=== PATIENT | female | born 1940 | race Caucasian/White ===

== ENCOUNTER 2017-02-14 09:25 | Emergency (ER) | payer MEDICARE ==
[~2017-02-14] VITALS: Ht 162.6 cm; Wt 66.0 kg
[2017-02-14 09:29] VITALS: BP 194/96; PULSE 89; RESP 16; TEMP 98.3; O2SAT 98
[2017-02-14] MEDS ORDERED: OMEP20TA93 PO (09:36)
--- NOTE | 2017-02-14 09:46 | PD ---
HPI Chief Complaint: Injury Time Seen by Provider: 09:39 Travel History International Travel<30 days: No Contact w/Intl Traveler<30days: No Traveled to known affect area: No History of Present Illness HPI 76-year-old female presents to emergency department after a fall that occurred this morning. States she was going for her morning walk on the sidewalk tripped and fell landing on her left wrist and knees. States her left wrist is tender with decreased range of motion secondary to pain. Pain is moderate, decreases with rest. Right wrist mild pain to palpation to the ulnar head, but has full range of motion. States knees are 'ok' and denies pain. States that she did bump her head on her arm. Patient denies loss of consciousness, dizziness, headache, blurred vision, head pain, neck pain, back pain. Denies fever, chills, chest pain, short of breath. Patient is not on anticoagulants. Denies numbness, tingling of extremities. PFSH Past Medical History GERD: Yes Tetanus Vaccination: Unknown Influenza Vaccination: Yes Social History Alcohol Use: Yes (nightly 3 drinks) Tobacco Use: No Substance Use: No Allergies-Medications (Allergen,Severity, Reaction): Coded Allergies: No Known Allergies (Unverified , 02/14/17) Reported Meds & Prescriptions Reported Meds & Active Scripts Active Muldraugh (Hydrocodone-Acetaminophen) 5 Mg-325 Mg Tab 1 Tab PO Q6H PRN Reported Omeprazole 20 Mg Tab 20 Mg PO DAILY Review of Systems Except as stated in HPI: all other systems reviewed are Neg Physical Exam Narrative GENERAL: Well-developed well-nourished SKIN: Focused skin assessment warm/dry. HEAD: Atraumatic. Normocephalic. No obvious trauma, skin intact EYES: Pupils equal and round. No scleral icterus. No injection or drainage. EOMI ENT: No nasal bleeding or discharge. Mucous membranes pink and moist. NECK: Trachea midline. No JVD. No midline tenderness, no TTP. CARDIOVASCULAR: Regular rate and rhythm. No murmur appreciated. RESPIRATORY: No accessory muscle use. Clear to auscultation. Breath sounds equal bilaterally. GASTROINTESTINAL: Abdomen soft, non-tender, nondistended. Hepatic and splenic margins not palpable. MUSCULOSKELETAL: No obvious deformities. No clubbing. No cyanosis. No edema. Left wrist- distal radius with slight dorsal displacement. Neurovascularly intact. Decreased lateral rotation of forearm secondary to pain. Ecchymosis to wrist Right wrist- TTP to ulnar region, no ecchymosis, edema or deformities. Full range of motion of hand. Neurovascular intact No tenderness to palpation of the elbows, or deformities. Bilateral knees- superficial abrasions, full range of motion without deformities or ecchymosis NEUROLOGICAL: Awake and alert. No obvious cranial nerve deficits. Motor grossly within normal limits. Normal speech. PSYCHIATRIC: Appropriate mood and affect; insight and judgment normal. Data Data Last Documented VS Vital Signs Date Time Temp Pulse Resp B/P (MAP) Pulse Ox O2 Delivery O2 Flow Rate FiO2 02/14/17 14:11 67 18 130/68 (88) 94 Room Air 02/14/17 12:50 3.00 02/14/17 09:29 98.3 Orders Orders Wrist, Complete (Jun2cmv) (02/14/17 ) Wrist, Complete ([id number]) (02/14/17 ) Acetamin-Hydrocod 325-5 Mg (Muldraugh 5-325 (02/14/17 10:30) Propofol 200 Mg/20 Ml Inj (Diprivan 200 (02/14/17 12:15) Ecg Monitoring (02/14/17 12:25) Iv Access Insert/Monitor (02/14/17 12:25) Oximetry (02/14/17 12:25) Splinting (02/14/17 ) Fiberglass Sugartong Sp Ad Arm (02/14/17 ) Sling Cradle Arm (02/14/17 ) Wrist, Limited (Ap&Lat) (02/14/17 ) Splint Or Brace Apply/Monitor (02/14/17 14:32) Ed Discharge Order (02/14/17 14:35) Radiology Film Requests (02/14/17 ) MDM Medical Decision Making Medical Screen Exam Complete: Yes Emergency Medical Condition: Yes Differential Diagnosis Left wrist fracture versus sprain versus strain Right wrist fracture versus sprain versus strain Narrative Course 76-year-old female presents to emergency department after a fall that occurred this morning. States she was going for her morning walk on the sidewalk tripped and fell landing on her left wrist and knees. States her left wrist is tender with decreased range of motion secondary to pain. Pain is moderate, decreases with rest. Right wrist mild pain to palpation to the ulnar head, but has full range of motion. States knees are 'ok' and denies pain. States that she did bump her head on her arm. Patient denies loss of consciousness, dizziness, headache, blurred vision, head pain, neck pain, back pain. Denies fever, chills, chest pain, short of breath. Patient is not on anticoagulants. She ate grapes approximately and hour prior to arrival and coffee earlier this morning. Otherwise has been NPO. Vital signs stable Physical exam left wrist deformity, neurovascularly intact. Right wrist no obvious trauma but TTP to ulnar head, neurovascular intact Left Wrist: Comminuted angulated fracture of the distal left radius involving the radiocarpal joint, Avulsion fracture of the ulnar styloid. Right Wrist: No acute process. Last tetanus shot approximately 3 years ago with her right knee replacement. Pt refused knee xrays and imaging of the head and neck. I explained risks vs benefits. 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 Discussed case with Dr. Alvarado. Post reduction xray improved pain and deformity. Dr. Hutchins recommended follow-up in his clinic next week. Hydrocodone for pain control Explained care for her left wrist. Diagnosis Primary Impression: Knee abrasion Qualified Codes: S80.219A - Abrasion, unspecified knee, initial encounter Additional Impressions: Fracture, radius, distal Qualified Codes: S52.502A - Unspecified fracture of the lower end of left radius, initial encounter for closed fracture Wrist contusion Qualified Codes: S60.211A - Contusion of right wrist, initial encounter Referrals: Primary Care Physician Additional Instructions: Keep the splint clean and dry. Do not remove the splint. Take medications as prescribed If your symptoms persist or worsen return to the emergency department If you develop headache, worsening symptoms, return to the emergency department Return to your primary care physician within 2 days Scripts Hydrocodone-Acetaminophen (Muldraugh) 5 Mg-325 Mg Tab 1 TAB PO Q6H Y for PAIN, #10 TAB 0 Refills Prov: Magda Alvarado DO 02/14/17 Disposition: 01 DISCHARGE HOME Condition: Stable Pari Jones Feb 14, 2017 09:46
--- NOTE | 2017-02-14 10:27 | RADRPT ---
EXAM DATE/TIME: 02/14/2017 10:06 [facility] COMPARISON: No previous studies available for comparison. INDICATIONS : Fell pain with deformity left wrist. MEDICAL HISTORY : None. SURGICAL HISTORY : None. ENCOUNTER: Initial ACUITY: 1 day PAIN SCORE: 10/10 LOCATION: Left wrist. FINDINGS: Three view examination of the left wrist demonstrates a contracted fracture of the distal left radius extending into the radiocarpal joint. There is slight angulation of the fracture with the apex point ed dorsally. No significant distraction is noted. Small avulsion fracture the ulnar styloid is noted. Significant soft tissue swelling is apparent. CONCLUSION: 1. Comminuted angulated fracture of the distal left radius involving the radiocarpal joint. 2. Avulsion fracture of the ulnar styloid. Maikol Barton MD on February 14, 2017 at 10:24 Board Certified Radiologist. This report was verified electronically.
--- NOTE | 2017-02-14 10:29 | RADRPT ---
EXAM DATE/TIME: 02/14/2017 10:06 [facility] COMPARISON: No previous studies available for comparison. INDICATIONS : Fell pain medial right wrist. MEDICAL HISTORY : None. SURGICAL HISTORY : None. ENCOUNTER: Initial ACUITY: 1 day PAIN SCORE: 5/10 LOCATION: Right wrist. FINDINGS: Three view examination of the right wrist demonstrates no soft tissue swelling, dislocation, or fract ure. The carpal bones are in normal alignment. Mild degenerative arthropathy is seen of the radiocar pal joint. Sclerosis and irregularity seen along the inferior articulating surface of the lunate. Bon y mineralization is normal. CONCLUSION: 1. Mild right wrist arthropathy. 2. No evidence of acute fracture or dislocation. Maikol Barton MD on February 14, 2017 at 10:26 Board Certified Radiologist. This report was verified electronically.
[2017-02-14] MEDS ORDERED: ACETAMINOPHEN/HYDROcodone 325 MG/5 MG TAB PO ONE (10:30)
[2017-02-14] MEDS ORDERED: PROPOFOL 200 MG/20 ML AMP IV ONE (12:15)
--- NOTE | 2017-02-14 12:25 | PD ---
Physical Exam Date Seen by Provider: Feb 14, 2017 Data Data Last Documented VS Vital Signs Date Time Temp Pulse Resp B/P (MAP) Pulse Ox O2 Delivery O2 Flow Rate FiO2 02/14/17 14:11 67 18 130/68 (88) 94 Room Air 02/14/17 12:50 3.00 02/14/17 09:29 98.3 Orders Orders Wrist, Complete (Ppt0kal) (02/14/17 ) Wrist, Complete ([id number]) (02/14/17 ) Acetamin-Hydrocod 325-5 Mg (Francis 5-325 (02/14/17 10:30) Propofol 200 Mg/20 Ml Inj (Diprivan 200 (02/14/17 12:15) Ecg Monitoring (02/14/17 12:25) Iv Access Insert/Monitor (02/14/17 12:25) Oximetry (02/14/17 12:25) Splinting (02/14/17 ) Fiberglass Sugartong Sp Ad Arm (02/14/17 ) Sling Cradle Arm (02/14/17 ) Wrist, Limited (Ap&Lat) (02/14/17 ) Splint Or Brace Apply/Monitor (02/14/17 14:32) MDM Medical Record Reviewed: Yes Supervised Visit with KONSTANTIN: Yes Narrative Course I, Dr. Alvarado, have reviewed the advance practice practitioner's documentation and am in agreement, met with the patient face to face, made the diagnosis, and the medical decision making was done by me. *My assessment and Findings: Last Impressions Wrist X-Ray 02/14/17 0000 Signed Impressions: Service Date/Time: February 10:06 - CONCLUSION: 1. Mild right wrist arthropathy. 2. No evidence of acute fracture or dislocation. Maikol Barton MD Wrist X-Ray 02/14/17 0000 Signed Impressions: Service Date/Time: February 10:06 - CONCLUSION: 1. Comminuted angulated fracture of the distal left radius involving the radiocarpal joint. 2. Avulsion fracture of the ulnar styloid. Maikol Barton MD Patient with left wrist with angulated comminuted fracture of the left distal radius involving the radiocarpal joint as well as avulsion fracture of the ulnar styloid. Patient consents to conscious sedation as well as reduction of left wrist fracture. Last Impressions Wrist X-Ray 02/14/17 0000 Signed Impressions: Service Date/Time: February 13:33 - CONCLUSION: Status post closed reduction of a angulated fracture of the distal left radius involving the radial carpal joint with improved alignment. Maikol Barton MD Wrist X-Ray 02/14/17 0000 Signed Impressions: Service Date/Time: February 10:06 - CONCLUSION: 1. Mild right wrist arthropathy. 2. No evidence of acute fracture or dislocation. Maikol Barton MD Wrist X-Ray 02/14/17 0000 Signed Impressions: Service Date/Time: February 10:06 - CONCLUSION: 1. Comminuted angulated fracture of the distal left radius involving the radiocarpal joint. 2. Avulsion fracture of the ulnar styloid. Maikol Barton MD Patient with improved angulation of fracture of left distal radius after sedation and reduction. Case reviewed with Dr. Hutchins who reviewed the xray who request that patient follow up in clinic next week. Procedures Procedure Narrative After the risks and benefits were discussed the following procedure was performed: MODERATE SEDATION: The patient was placed on a countersinker balance screw hole and pulse oximetry. An ambu bag and suction was immediately available at bedside. The patient was monitored by the nurse. Oxygen saturation , heart rate and blood pressure were monitored. Procedural sedation was achieved using 50mg of IV propofol . The patient was observed until awake and alert. Procedural Sedation time in attendance was 20 minutes. Reduction of left wrist procedure: Patient was placed in traction, countertraction. The wrist was hyperextended to re-create the mechanism injury followed by a volar translation of the distal radial fragment. This was done with an medical receptionist assistant providing countertraction of the upper arm with elbow flexed 90. After distal radius reduced, slight was placed by our orthopedic with handheld in ulnar deviation. Patient with no neurovascular compromise after splint Diagnosis Primary Impression: Knee abrasion Qualified Codes: S80.219A - Abrasion, unspecified knee, initial encounter Additional Impression: Wrist fracture, left Referrals: Сергей Hutchins MD Primary Care Physician Patient Instructions: Moderate Sedation (ED), General Instructions Additional Instruction: If your symptoms persist or worsen return to the emergency department Return to your primary care physician within 2 days Please provide patient with a copy of their lab work and studies at discharge* * Please follow up with your primary care doctor in 2-3 days Return to the ER if symptoms worsen or progress Return to the ER as needed Please follow with Dr. Hutchins in the office in one week Med/Other Pt SpecificInfo: Prescription(s) given Scripts Hydrocodone-Acetaminophen (Francis) 5 Mg-325 Mg Tab 1 TAB PO Q6H Y for PAIN, #10 TAB 0 Refills Prov: Magda Alvarado DO 02/14/17 Disposition: 01 DISCHARGE HOME Condition: Stable Magda Alvarado DO Feb 14, 2017 12:25
[2017-02-14 12:50] VITALS: O2SAT 99
[2017-02-14 13:08] VITALS: RESP 16; O2SAT 99
--- NOTE | 2017-02-14 13:46 | RADRPT ---
EXAM DATE/TIME: 02/14/2017 13:33 [facility] COMPARISON: WRIST LEFT COMPLETE ([id number]), February 14, 2017, 10:06. WRIST RIGHT COMPLETE ([id number]), February, 10:06. INDICATIONS : Post reduction left wrist MEDICAL HISTORY : None. SURGICAL HISTORY : None. ENCOUNTER: Subsequent ACUITY: 1 day PAIN SCORE: 2/10 LOCATION: Left Wrist FINDINGS: Two view examination of the left wrist demonstrates improved fracture fragment alignment following cl osed reduction and casting. There is mild residual dorsal angulation. Radiocarpal alignment appears a natomic. There is no significant distraction of the ulnar styloid. CONCLUSION: Status post closed reduction of a angulated fracture of the distal left radius involving the radial c arpal joint with improved alignment. Maikol Barton MD on February 14, 2017 at 13:42 Board Certified Radiologist. This report was verified electronically.
[2017-02-14 14:11] VITALS: BP 130/68; PULSE 67; RESP 18; O2SAT 94
[2017-02-14] MEDS ORDERED: HYDR-3580 PO (14:32)
[2017-02-14] MEDS ORDERED: NORC5TAB PO (14:37)
== END 2017-02-14 15:29 | disposition home or self-care (01) ==
LOC: NEPD 09:25
DX: S52.502A Unspecified fracture of the lower end of left radius, initial encounter for closed fracture (principal); S52.612A Displaced fracture of left ulna styloid process, initial encounter for closed fracture; S80.212A Abrasion, left knee, initial encounter; W01.0XXA Fall on same level from slipping, tripping and stumbling without subsequent striking against object, initial encounter
CPT/HCPCS: 25605; 73100; 73110